=== PATIENT | male | born 1980 | race African-American/Black ===

== ENCOUNTER → 2021-09-13 | Day surgery (SDC) | payer OTHER ==
[~2021-09-13] VITALS: Ht 170.2 cm; Wt 88.5 kg
[~2021-09-13] MED LIST: ADDERALL 15 MG15 MG PO; DULERA 100 MCG8.8 GM INH; PERCOCET 5-3251 EACH PO; VENTOLIN HFA IN18 GM INH
[2021-09-13 11:48] LABS: HCT 46.1 % (42.0-52.0); HGB 16.4 g/dl (13.2-18.0); MCHC 35.6 g/dL (32.0-36.0); MCV 87.1 fL (78.0-100.0); RBC 5.29 M/uL (4.70-6.00); RDW 12.2 % (11.5-14.0); WBC 7.8 K/uL (4.0-10.5)
[2021-09-13 11:56] LABS: BILIRUBIN - TOTAL 1.5 mg/dL (0.2-1.0); BUN/CREAT RATIO (CALC) 17.9 RATIO; CREATININE 0.95 mg/dL (0.67-1.17); GLOBULIN (CALCULATION) 4.3 g/dL; TOTAL PROTEIN 8.3 g/dL (6.4-8.2)
== END | disposition home or self-care (01) ==
LOC: FAS 11:09
PROVIDERS: Orthopaedic Surgery
DX: M75.112 Incomplete rotator cuff tear or rupture of left shoulder, not specified as traumatic (principal); J45.909 Unspecified asthma, uncomplicated; F90.9 Attention-deficit hyperactivity disorder, unspecified type; Z88.8 Allergy status to other drugs, medicaments and biological substances; Z79.899 Other long term (current) drug therapy
CPT/HCPCS: 36415; 80053; 93005; C1713; J0171; J0690; J0735; J1100; J2250; J2405; J2704; J2795; J3010; J7120